=== PATIENT | male | born 1950 | race Caucasian/White ===

== ENCOUNTER 2016-05-10 18:01 | Inpatient (IN) | payer OTHER ==
[~2016-05-10] VITALS: Ht 177.8 cm; Wt 90.4 kg
[~2016-05-10 18:01] MED LIST: ALENDRONATE SOD70 M1 PO; AMLODIPINE BESYL5 MG PO; HYDROCODONE BIT1 T11 PO; PREDNISONE2.5 MG PO; RANITIDINE150 MG PO; RUFEN800 MG PO; TENORMIN25 MG PO
[2016-05-10 18:03] VITALS: BP 120/74
[2016-05-10 18:56] LABS: HEMATOCRIT 39.6 % (42.0-52.0); HEMOGLOBIN 12.8 g/dl (14.0-18.0); MEAN CELL VOLUME 94.3 fl (80.0-94.0); MEAN CORPUSCULAR HGB 30.5 pg (27.0-31.0); MEAN CORPUSCULAR HGB CONC 32.3 g/dl (33.0-37.0); MEAN PLATELET VOLUME 8.6 fl (9.6-12.3); PLATELET COUNT AUTOMATED 162 10*3/uL (130-400); RED CELL DISTRI WIDTH 15.2 % (0-14.5)
[2016-05-10 19:11] LABS: ALBUMIN 2.7 gm/dl (3.1-4.5); BILIRUBIN, TOTAL 0.7 mg/dl (0.2-1.0); POTASSIUM 3.9 mmol/L (3.5-5.1); TOTAL PROTEIN 6.7 gm/dL (6.4-8.2)
[2016-05-10 19:33] LABS: BILIRUBIN NEGATIVE (NEGATIVE); BLOOD 2+ (NEGATIVE); CLARITY CLOUDY (CLEAR); COLOR YELLOW (YELLOW); GLUCOSE NEGATIVE (NEGATIVE); KETONE NEGATIVE (NEGATIVE); LEUKO ESTERASE 3+ (NEGATIVE); NITRITE NEGATIVE (NEGATIVE); PH 5.5 (5.0-9.0); PROTEIN 1+ (NEGATIVE); SPECIFIC GRAVITY 1.025 (1.005-1.030); UROBILINOGEN 0.2 E.U./dl (0.2-1.0)
[2016-05-10 19:35] LABS: ATYPICAL LYMPHS 3 % (0-0); BASOPHIL # 0.1 10*3/uL (0-0.1); BASOPHILS 1 % (0-1); EOSINOPHIL # 0.1 10*3/uL (0-0.4); EOSINOPHILS 1 % (1-4); METAMYELOCYTES 1 % (0-0); MONOCYTE # 1.5 10*3/uL (0.1-1.0); NEUTROPHIL # 11.1 10*3/uL (2.3-7.9); NEUTROPHILS 79 % (47-73); TOTAL CELLS COUNTED 100 #CELLS
[2016-05-10 19:36] LABS: PLATELET SUFFICIENCY NORMAL (NORMAL)
[2016-05-10 19:51] LABS: BACTERIA 4+; EPITHELIAL CELLS 0-2; MUCOUS TRACE; RBC TNTC rbc/hpf (0-2); URINE REFLEX COMMENT YES (NO); WBC TNTC wbc/hpf (0-5)
[2016-05-10 20:17] VITALS: BP 100/69
[2016-05-10 21:33] VITALS: BP 108/68
[2016-05-10 22:00] VITALS: BP 107/68
[2016-05-11] VITALS: BP 124/72
[2016-05-11 00:46] LABS: CKMB 3.2 ng/ml (0.5-3.6)
[2016-05-11 06:18] LABS: MEAN CELL VOLUME 95.5 fl (80.0-94.0); MEAN CORPUSCULAR HGB 30.3 pg (27.0-31.0); MEAN CORPUSCULAR HGB CONC 31.8 g/dl (33.0-37.0); MEAN PLATELET VOLUME 8.9 fl (9.6-12.3); PLATELET COUNT AUTOMATED 130 10*3/uL (130-400); RED BLOOD COUNT 3.56 10*6/uL (4.50-5.90)
[2016-05-11 06:19] LABS: HEMOGLOBIN A1c 4.8 % (4.8-5.6)
[2016-05-11 06:26] LABS: HEMOGLOBIN 10.8 g/dl (14.0-18.0)
[2016-05-11 06:29] LABS: PROTHROMBIN TIME 11.1 SECONDS (9.0-12.4)
[2016-05-11 06:35] LABS: ALBUMIN 2.4 gm/dl (3.1-4.5); BILIRUBIN, TOTAL 0.5 mg/dl (0.2-1.0); POTASSIUM 4.8 mmol/L (3.5-5.1); TOTAL PROTEIN 6.6 gm/dL (6.4-8.2)
[2016-05-11 06:36] LABS: FREE T4 1.23 ng/dl (0.76-1.46); THYROID STIM HORMONE (HS) 0.518 uIU/ml (0.358-4.75)
[2016-05-11 07:36] LABS: LYMPHOCYTE # 0.2 10*3/uL (1.3-4.4); METAMYELOCYTES 1 % (0-0); MONOCYTE # 0.3 10*3/uL (0.1-1.0); MYELOCYTES 1 % (0-0); NEUTROPHIL # 8.4 10*3/uL (2.3-7.9); NEUTROPHILS 93 % (47-73); PLATELET SUFFICIENCY NORMAL (NORMAL); TOTAL CELLS COUNTED 100 #CELLS
[2016-05-11 08:00] VITALS: BP 124/74
[2016-05-11] MEDS ORDERED: TAMSULOSIN HCL0.4 MG PO (10:32)
[2016-05-11] MEDS ORDERED: NEURONTIN100 MG PO (10:33)
[2016-05-11] MEDS ORDERED: HYDROXYCHLOROQ200 M1 PO (10:34)
[2016-05-11] MEDS ORDERED: VITAMIN D50000 I3 PO (10:34)
[2016-05-11] MEDS ORDERED: TENORMIN25 MG PO (10:36)
[2016-05-11 12:00] VITALS: BP 139/76
[2016-05-11 12:26] LABS: CKMB 3.1 ng/ml (0.5-3.6)
[2016-05-11] MEDS ORDERED: LEVAQUIN750 M1 PO ×2 (15:16→15:23)
[2016-05-11] MEDS ORDERED: DOXYCYCLINE100 MG PO (15:23)
[2016-05-12 15:07] LABS: FOLIC ACID 18.93 ng/mL (>5.38)
[2016-05-13 15:08] LABS: ORGANISM ID Not indicated. (.); SPECIMEN SOURCE Urine (.); STREPTOCOCCUS PNEUMONIAE AG Negative (Negative)
[2016-05-13 16:10] LABS: LEGIONELLA URINARY ANTIGEN Negative (Negative)
== END 2016-05-11 16:15 | disposition home or self-care (01) | DRG 871 ==
LOC: ED 18:01 → EDHOLD 20:04 → 4E 20:04
PROVIDERS: Internal Medicine; Registered Nurse
DX: A41.9 Sepsis, unspecified organism (principal); J18.9 Pneumonia, unspecified organism; N17.0 Acute kidney failure with tubular necrosis; N30.00 Acute cystitis without hematuria; E44.0 Moderate protein-calorie malnutrition; R65.20 Severe sepsis without septic shock; L25.9 Unspecified contact dermatitis, unspecified cause; M06.9 Rheumatoid arthritis, unspecified; M81.0 Age-related osteoporosis without current pathological fracture; K21.9 Gastro-esophageal reflux disease without esophagitis; I10 Essential (primary) hypertension; Z88.8 Allergy status to other drugs, medicaments and biological substances; Z79.899 Other long term (current) drug therapy; Z68.28 Body mass index [BMI] 28.0-28.9, adult; Z91.040 Latex allergy status

== ENCOUNTER 2016-12-13 14:49 | Inpatient (IN) | payer OTHER ==
[~2016-12-13] VITALS: Ht 177.8 cm; Wt 81.0 kg
[2016-12-13] VITALS (34 sets, daily range): BP systolic 70–108; BP diastolic 45–64
--- NOTE | ~2016-12-13 | CON ---
[place], [place] REPORT OF CONSULTATION NAME: MERLY VALENZUELA UNIT #: [id number] ROOM: [facility] DOCTOR: BLAKE LYLESALFREDOVIDYA BIRTHDATE: [birth year] DOS: REQUESTING PHYSICIAN: Dr. Golden De La Torre. REASON FOR CONSULTATION: Hypertension. ASSESSMENT: 1. Current presentation with abdominal pain. 2. Evidence of severe hypertension requiring Levophed for support. 3. No significant response for 5-6 liters of IV challenge. 4. Chronic treatment with steroids for arthritis. 5. Previous history of tobacco abuse. 6. Severe anemia. 7. Acute renal failure. 8. Vitamin D deficiency. PLAN: 1. Cycle cardiac enzymes. 2. Check D-dimer. 3. Sed rate and CRP. 4. Consider challenge test for possible adrenal insufficiency. 5. Echocardiogram. 6. Consider renal consultation. 7. No further cardiac testing at this time. HISTORY OF PRESENT ILLNESS: The patient is a pleasant 66-year-old gentleman unknown to our practice, was referred by Dr. De La Torre for evaluation of severe hypertension. Apparently, the patient initial presentation with abdominal pain, but has no specific complaints, has been going on for the past 3 days prior to admission since Tuesday. The pain is pretty umbilical, generalized, nonradiating. No associated nausea, vomiting, or diaphoresis. No fever, no chills, no night sweats. No diarrhea, no bright blood per rectum or tarry stools. The patient is still able to keep food in. Never had any chest pain, chest pressure, heaviness or tightness. Never had any symptomatic palpitation or any associated dizziness, lightheadedness, or near syncope. The patient clearance prior to this presentation has been relatively healthy. PAST MEDICAL HISTORY: As detailed in my assessment. SOCIAL HISTORY: The patient claims he does no current tobacco, alcohol or illicit drug abuse. The patient admits to marijuana abuse. CURRENT MEDICATIONS: Currently is vitamin D, folic acid, vancomycin, prednisone, Levaquin, Neurontin, Lovenox, bisacodyl, DuoNeb, Protonix, and Levophed. ALLERGIES: The patient is allergic to NAPROSYN and MORPHINE. REVIEW OF SYSTEMS: Currently, the patient denies any headache, diplopia or blurry vision. No fever, no chills, no night sweats and no more abdominal pain, [place], [place] REPORT OF CONSULTATION NAME: MERLY VALENZUELA UNIT #: [id number] ROOM: [facility] DOCTOR: CHAIM LOZANO MD BIRTHDATE: [birth year] no bright red blood per rectum or tarry stools. The patient admits to joint pain and muscular pain (severe arthritic pain requiring steroids). No anxiety, no depression. No polyuria, no polydipsia, no skin rash. Review of all other systems has been negative. PHYSICAL EXAMINATION: GENERAL: The patient is alert and oriented x 3, quite pleasant. VITAL SIGNS: Blood pressure currently is 118/77, heart rate 92, respiratory rate of 18, temperature 98.1. HEENT: Extraocular muscles intact. Pupils equal, round, reactive to light. Conjunctivae significant pallor. Throat: No petechiae. NECK: Good upstroke. Unable to appreciate any bruit, no lymphadenopathy, no thyromegaly, no evidence of JVD. HEART: S1, S2 with holosystolic murmur in the left upper sternal border. No rub, no sternal heave. Distant heart sounds. CHEST AND BACK: No deformities. LUNGS: Decreased air movement. No laquita wheezing or rales. ABDOMEN: Soft, distended, generalized tenderness. Unable to appreciate any masses or bruits. No rebound. EXTREMITIES: Lower extremities, no edema. Faint distal pulses. NEUROLOGIC: Grossly nonfocal. SKIN: No significant rash. LABORATORY DATA: White count 4.7, hemoglobin 8.4, platelet counts 119,000. UA has been negative except for ketones. Creatinine 2.2, BUN 33, GFR 30%. Total bilirubin 2.6, ALT 10, alkaline phosphatase 192, total protein is 6, albumin is 1.6. HDL is 10, total cholesterol 67, triglycerides 76, LDL 42. Free T4 1.3. CHAIM LOZANO MD CM:CONSTR:REPORT OF CONSULTATION 33 12/14/162048 interface
--- NOTE | ~2016-12-13 | PR ---
[place], [place] PROGRESS NOTE NAME: MERLY VALENZUELA UNIT #: [id number] ROOM: [facility] DOCTOR: CHAIM LOZANO MD BIRTHDATE: [birth year] DOS: 12/15/2016 SUBJECTIVE: The patient is lying down completely flat on bed, continued to be tachypneic and short of breath. No specific cardiac complaint. No chest pain, no chest pressure. No symptomatic palpitation. No fever, no chills. The patient reported some improvement from last night. OBJECTIVE: VITAL SIGNS: Blood pressure 97/55, heart rate 82, respiratory rate of 20, temperature 98.1. NECK: Neck with no evidence of JVD. HEART: Heart exam, S1, S2 with holosystolic murmur at the left upper sternal border. LUNGS: Significantly decreased air movement but no laquita wheezing or rales. ABDOMEN: Distended, soft and tender. Present bowel sounds. LOWER EXTREMITIES: There is no significant edema. LAB DATA: White count 4.3, platelet count 127, hemoglobin 8.7, sed rate 130. Potassium 4.6, creatinine 1.8, BUN 28, GFR 37. Total bilirubin 2, ALT 9, AST 16. C-reactive protein is 22. Troponin less than 0.015. ASSESSMENT AND PLAN: Presentation with abdominal pain and shortness of breath in a patient who has quite extensive metabolic derangement including severe anemia, chronic renal failure, significantly elevated liver function tests that is showing some improvement today, with elevated CRP and sed rate. The patient's white count is normal with no evidence of left shift. The patient continued to be on Levophed drip to maintain blood pressure. I will proceed with an urgent echocardiogram to evaluate LV function. Highly recommend pulmonary consultation to consider pleurocentesis, both diagnostic and therapeutic. GI is already on the case. Again, consider test or a.m. cortisol in view of the patient's chronic intake of prednisone. No further cardiac testing at this time. CHAIM LOZANO MD CM:PNTRANS [id number] CHAIM LOZANO MD 12/16/16 0215 interface
--- NOTE | ~2016-12-13 | CON ---
[place], [place] REPORT OF CONSULTATION NAME: MERLY VALENZUELA UNIT #: [id number] ROOM: [facility] DOCTOR: CAMMIE REAVES MD,NAM BIRTHDATE: [birth year] DOS: 12/15/2016 The patient asked for consultation, but not seen prior to transfer to another facility. NAM BONDS MD CM:CONSTR:REPORT OF CONSULTATION 1152 12/16/16 1201 interface
[~2016-12-13 14:49] MED LIST changes: +DOXYCYCLINE100 MG PO; +HYDROXYCHLOROQ200 M1 PO; +LEVAQUIN750 M1 PO; +NEURONTIN100 MG PO; -PREDNISONE2.5 MG PO; +PREDNISONE5 MG PO; +TAMSULOSIN HCL0.4 MG PO; +VITAMIN D50000 I3 PO
[2016-12-13 16:24] LABS: HEMATOCRIT 27.2 % (42.0-52.0); HEMOGLOBIN 8.7 g/dl (14.0-18.0); MEAN CELL VOLUME 88.3 fl (80.0-94.0); MEAN CORPUSCULAR HGB 28.2 pg (27.0-31.0); MEAN PLATELET VOLUME 9.3 fl (9.6-12.3); PLATELET COUNT AUTOMATED 142 10*3/uL (130-400); RED BLOOD COUNT 3.08 10*6/uL (4.50-5.90); RED CELL DISTRI WIDTH 14.7 % (0-14.5); WHITE BLOOD COUNT 5.6 10*3/uL (4.8-10.8)
[2016-12-13 16:41] LABS: ALBUMIN 2.1 gm/dl (3.1-4.5); POTASSIUM 4.3 mmol/L (3.5-5.1); TOTAL PROTEIN 7.1 gm/dL (6.4-8.2)
[2016-12-13 16:57] LABS: BASOPHIL # 0.1 10*3/uL (0-0.1); BASOPHILS 1 % (0-1); EOSINOPHIL # 0.1 10*3/uL (0-0.4); EOSINOPHILS 1 % (1-4); LYMPHOCYTE # 0.7 10*3/uL (1.3-4.4); MONOCYTE # 1.1 10*3/uL (0.1-1.0); NEUTROPHIL # 3.7 10*3/uL (2.3-7.9); NEUTROPHILS 66 % (47-73); POLYCHROMASIA SLIGHT; TOTAL CELLS COUNTED 100 #CELLS
[2016-12-13 16:58] LABS: PLATELET SUFFICIENCY NORMAL (NORMAL)
[2016-12-13] MEDS ORDERED: NEURONTIN300 MG PO (22:10)
[2016-12-14] VITALS (85 sets, daily range): BP systolic 62–134; BP diastolic 33–85
[2016-12-14 06:01] LABS: HEMATOCRIT 26.9 % (42.0-52.0); HEMOGLOBIN 8.4 g/dl (14.0-18.0); MEAN CELL VOLUME 90.6 fl (80.0-94.0); MEAN CORPUSCULAR HGB 28.3 pg (27.0-31.0); MEAN CORPUSCULAR HGB CONC 31.2 g/dl (33.0-37.0); MEAN PLATELET VOLUME 9.3 fl (9.6-12.3); PLATELET COUNT AUTOMATED 119 10*3/uL (130-400); RED BLOOD COUNT 2.97 10*6/uL (4.50-5.90); RED CELL DISTRI WIDTH 15.3 % (0-14.5); WHITE BLOOD COUNT 4.7 10*3/uL (4.8-10.8)
[2016-12-14 06:19] LABS: ALBUMIN 1.6 gm/dl (3.1-4.5); BILIRUBIN, TOTAL 2.6 mg/dl (0.2-1.0); FREE T4 1.3 ng/dl (0.76-1.46); MAGNESIUM 1.6 mg/dL (1.5-2.1); PHOSPHOROUS 3.3 mg/dL (2.5-4.9); POTASSIUM 4.3 mmol/L (3.5-5.1)
[2016-12-14 06:23] LABS: EOSINOPHILS 1 % (1-4); LYMPHOCYTE # 0.9 10*3/uL (1.3-4.4); MONOCYTE # 0.6 10*3/uL (0.1-1.0); NEUTROPHIL # 3.1 10*3/uL (2.3-7.9); NEUTROPHILS 66 % (47-73); TOTAL CELLS COUNTED 100 #CELLS
[2016-12-14 06:24] LABS: PLATELET SUFFICIENCY LOW (NORMAL); THYROID STIM HORMONE (HS) 0.329 uIU/ml (0.358-4.75)
[2016-12-14 06:55] LABS: BILIRUBIN 2+ (NEGATIVE); BLOOD NEGATIVE (NEGATIVE); CLARITY CLOUDY (CLEAR); COLOR YELLOW (YELLOW); GLUCOSE NEGATIVE (NEGATIVE); KETONE NEGATIVE (NEGATIVE); LEUKO ESTERASE 1+ (NEGATIVE); NITRITE NEGATIVE (NEGATIVE); PH 5.5 (5.0-9.0); PROTEIN TRACE (NEGATIVE); SPECIFIC GRAVITY 1.015 (1.005-1.030); UROBILINOGEN >= 8.0 E.U./dl (0.2-1.0)
[2016-12-14 07:03] LABS: BACTERIA 4+; URINE REFLEX COMMENT YES (NO); WBC 31-40 wbc/hpf (0-5)
[2016-12-14 07:04] LABS: URINE AMPHETAMINES < 1000 (1000ng/ml); URINE BARBITURATES < 200 (200ng/ml); URINE COCAINE < 300 (300ng/ml)
[2016-12-14 08:29] LABS: VITAMIN D, 25-HYDROXY 20.1 ng/mL (30-100)
[2016-12-14 08:30] LABS: FOLIC ACID 4.22 ng/mL (>5.38)
[2016-12-14 09:57] LABS: HEMOGLOBIN A1c < 3.5 % (4.8-5.6)
[2016-12-14 18:45] LABS: ABG CO2 CONTENT 18.3 mmol/L (23-27); ABG HCO3 17.2 mmol/l (22-26); ABG TEMPERATURE 96.5 F (98.0-99.0); ARTERIAL BLOOD GAS PH 7.323 (7.35-7.45)
[2016-12-14 18:46] LABS: ABG BASE EXCESS -7.9 mmol/L (-2.0-2.0)
[2016-12-15] VITALS (65 sets, daily range): BP systolic 75–112; BP diastolic 35–71
[2016-12-15 05:56] LABS: HEMATOCRIT 28.2 % (42.0-52.0); HEMOGLOBIN 8.7 g/dl (14.0-18.0); MEAN CELL VOLUME 89.8 fl (80.0-94.0); MEAN CORPUSCULAR HGB 27.7 pg (27.0-31.0); MEAN CORPUSCULAR HGB CONC 30.9 g/dl (33.0-37.0); MEAN PLATELET VOLUME 9.3 fl (9.6-12.3); PLATELET COUNT AUTOMATED 127 10*3/uL (130-400); RED BLOOD COUNT 3.14 10*6/uL (4.50-5.90); RED CELL DISTRI WIDTH 15.2 % (0-14.5); WHITE BLOOD COUNT 4.3 10*3/uL (4.8-10.8)
[2016-12-15 06:09] LABS: ALBUMIN 1.5 gm/dl (3.1-4.5); POTASSIUM 4.6 mmol/L (3.5-5.1); TOTAL PROTEIN 5.9 gm/dL (6.4-8.2)
[2016-12-15 07:08] LABS: EOSINOPHILS 1 % (1-4); HYPOCHROMIA SLIGHT; LYMPHOCYTE # 0.2 10*3/uL (1.3-4.4); MONOCYTE # 0.4 10*3/uL (0.1-1.0); NEUTROPHIL # 3.7 10*3/uL (2.3-7.9); NEUTROPHILS 85 % (47-73); PLATELET SUFFICIENCY LOW (NORMAL); ROULEAUX MODERATE; TOTAL CELLS COUNTED 100 #CELLS
[2016-12-15 11:23] LABS: ABG CO2 CONTENT 19.1 mmol/L (23-27); ABG HCO3 17.6 mmol/l (22-26); ABG TEMPERATURE 98.1 F (98.0-99.0); ARTERIAL BLOOD GAS PO2 84.4 mmHg (80-90)
[2016-12-15 11:27] LABS: ABG BASE EXCESS -9.7 mmol/L (-2.0-2.0); ARTERIAL BLOOD GAS PH 7.194 (7.35-7.45)
[2016-12-15 14:53] LABS: ABG CO2 CONTENT 17.5 mmol/L (23-27); ABG HCO3 16.3 mmol/l (22-26); ARTERIAL BLOOD GAS PH 7.254 (7.35-7.45)
[2016-12-15 14:54] LABS: ABG BASE EXCESS -9.8 mmol/L (-2.0-2.0)
== END 2016-12-15 16:57 | disposition short-term general hospital (02) | DRG 871 ==
LOC: ED 14:49 → ICCU 17:33 → EDHOLD 17:33 → 4E 18:05 → ICCU 18:40
PROVIDERS: Emergency Medicine; Internal Medicine; Internal Medicine Critical Care Medicine; Internal Medicine Hospice and Palliative Medicine
PROC: B244ZZZ Ultrasonography of Right Heart (ICD-10-PCS; principal; 2016-12-14)
PROC: 02H633Z Insertion of Infusion Device into Right Atrium, Percutaneous Approach (ICD-10-PCS; principal; 2016-12-14)
PROC: 0BH17EZ Insertion of Endotracheal Airway into Trachea, Via Natural or Artificial Opening (ICD-10-PCS; 2016-12-15)
PROC: 5A1935Z Respiratory Ventilation, Less than 24 Consecutive Hours (ICD-10-PCS; 2016-12-15)
DX: A41.9 Sepsis, unspecified organism (principal); N17.0 Acute kidney failure with tubular necrosis; R65.21 Severe sepsis with septic shock; E43 Unspecified severe protein-calorie malnutrition; E87.1 Hypo-osmolality and hyponatremia; R17 Unspecified jaundice; I50.32 Chronic diastolic (congestive) heart failure; I13.0 Hypertensive heart and chronic kidney disease with heart failure and stage 1 through stage 4 chronic kidney disease, or unspecified chronic kidney disease; G89.29 Other chronic pain; K21.9 Gastro-esophageal reflux disease without esophagitis; M81.0 Age-related osteoporosis without current pathological fracture; M06.9 Rheumatoid arthritis, unspecified; I95.0 Idiopathic hypotension; D53.9 Nutritional anemia, unspecified; K82.8 Other specified diseases of gallbladder; K80.20 Calculus of gallbladder without cholecystitis without obstruction; K59.00 Constipation, unspecified; D72.810 Lymphocytopenia; R73.9 Hyperglycemia, unspecified; E80.6 Other disorders of bilirubin metabolism; E55.9 Vitamin D deficiency, unspecified; F12.10 Cannabis abuse, uncomplicated; N18.3 Chronic kidney disease, stage 3 (moderate); Z68.25 Body mass index [BMI] 25.0-25.9, adult; Z87.891 Personal history of nicotine dependence; Z79.51 Long term (current) use of inhaled steroids; Z79.899 Other long term (current) drug therapy; Z88.5 Allergy status to narcotic agent; Z88.8 Allergy status to other drugs, medicaments and biological substances

== ENCOUNTER 2017-01-26 12:01 | Inpatient (IN) | payer OTHER ==
[~2017-01-26] VITALS: Ht 154.9 cm; Wt 73.2 kg
--- NOTE | ~2017-01-26 | EKG ---
[place], [place] ELECTROCARDIOGRAM REPORT NAME: MERLY VALENZUELA UNIT #: [id number] ROOM: 507 DOCTOR: JAMIE LYLES,KELSIE BIRTHDATE: [birth year] DOS: 01/28/2017 TIME: 11:06 a.m. CONCLUSION: 1. Sinus rhythm. 2. Premature atrial contractions. 3. First degree AV block. 4. Low voltage complexes. KELSIE AYALA MD CM:EKGRPT:ELECTROCARDIOGRAM REPORT [id number] KELSIE AYALA MD
--- NOTE | ~2017-01-26 | EKG ---
[place], [place] ELECTROCARDIOGRAM REPORT NAME: MERLY VALENZUELA UNIT #: [id number] ROOM: 507 DOCTOR: JAMIE LYLES,KELSIE BIRTHDATE: [birth year] DOS: 01/28/2017 TIME: 1641 hours. IMPRESSION: 1. Sinus rhythm. 2. First degree AV block. 3. Possible ST elevation and lateral leads, consider acute infarction. 4. Possible ST elevation, consider inferior acute myocardial infarction. KELSIE AYALA MD CM:EKGRPT:ELECTROCARDIOGRAM REPORT [id number] KELSIE AYALA MD
[2017-01-26 12:01] VITALS: BP 105/62
[~2017-01-26 12:01] MED LIST changes: +NEURONTIN300 MG PO
[2017-01-26 12:36] LABS: HEMATOCRIT 30.3 % (42.0-52.0); HEMOGLOBIN 9.2 g/dl (14.0-18.0); MEAN CELL VOLUME 96.5 fl (80.0-94.0); MEAN CORPUSCULAR HGB 29.3 pg (27.0-31.0); MEAN CORPUSCULAR HGB CONC 30.4 g/dl (33.0-37.0); MEAN PLATELET VOLUME 8.5 fl (9.6-12.3); PLATELET COUNT AUTOMATED 179 10*3/uL (130-400); RED BLOOD COUNT 3.14 10*6/uL (4.50-5.90); RED CELL DISTRI WIDTH 18.8 % (0-14.5); WHITE BLOOD COUNT 33.5 10*3/uL (4.8-10.8)
[2017-01-26 12:46] LABS: ACT PARTIAL THROMBO TIME 37.1 SECONDS (20.8-31.5)
[2017-01-26 12:53] LABS: TOTAL CELLS COUNTED 100 #CELLS
[2017-01-26 12:54] LABS: PLATELET SUFFICIENCY NORMAL (NORMAL); POLYCHROMASIA SLIGHT; TOXIC GRANULATION SLIGHT
[2017-01-26 12:59] LABS: ALBUMIN 1.8 gm/dl (3.1-4.5); ALKALINE PHOSPHATASE 191 U/L (45-117); BUN 41 mg/dl (7-24); CHLORIDE 106 mmol/L (98-107); CKMB 1.1 ng/ml (0.5-3.6); CPK 14 U/L (39-308); CREATININE 1.39 mg/dL (0.70-1.30); LIPASE 768 U/L (73-393); MAGNESIUM 1.5 mg/dL (1.5-2.1); POTASSIUM 5.1 mmol/L (3.5-5.1); SGOT/AST 25 IU/L (3-35); SGPT/ALT 33 U/L (12-78); SODIUM 138 mmol/L (136-145); TOTAL PROTEIN 6.2 gm/dL (6.4-8.2); TROPONIN I 0.027 ng/ml (<0.045)
[2017-01-26 14:22] VITALS: BP 106/70
[2017-01-26 14:30] LABS: BILIRUBIN NEGATIVE (NEGATIVE); BLOOD 2+ (NEGATIVE); CLARITY CLOUDY (CLEAR); COLOR YELLOW (YELLOW); GLUCOSE NEGATIVE (NEGATIVE); KETONE NEGATIVE (NEGATIVE); LEUKO ESTERASE 3+ (NEGATIVE); NITRITE POSITIVE (NEGATIVE); PH 5.5 (5.0-9.0); UROBILINOGEN 0.2 E.U./dl (0.2-1.0)
[2017-01-26 14:39] LABS: WBC TNTC wbc/hpf (0-5)
--- NOTE | 2017-01-26 14:50 | NUR ---
WOUNDS; BILATERAL RED/ECCHYMOTIC TYPE AREAS TO FOREARMS BILATERAL HEELS RED/SCALY SKIN LOWER LEGS BILATERALLY HAVE CHRONIC SKIN CHANGES SACRAL AREA IS REDDENED WITH SMALL OPENING
[2017-01-26 16:00] VITALS: BP 110/68
--- NOTE | 2017-01-26 16:00 | NUR ---
A 66, admitted to , under the services of NEENA Welch DO with a diagnosis of UTI, SEPSIS, PNEUMONIA. Chief complaint is SEPSIS. Patient arrived via bed from ER. Monitor applied. Initial assessment completed. Vital signs taken and recorded. NEENA WELCH DO notified of admission to the unit. Orders received. See assessment for past medical history, medications and allergies. Patient and/or family oriented to unit. [facility] visitation policy reviewed. Clothing/patient valuable form completed. ERIC AYALA
[2017-01-26 18:00] VITALS: BP 98/65
[2017-01-26] MEDS ORDERED: OMEPRAZOLE D/R20 MG PO (19:03)
[2017-01-26] MEDS ORDERED: NATURE'S BLEND F1 MG PO (19:04)
[2017-01-26] MEDS ORDERED: ASPIRIN CHEWABL81 MG PO (19:04)
[2017-01-26] MEDS ORDERED: HEPARIN SO5000 UNIT4 SC (19:06)
[2017-01-26] MEDS ORDERED: TYLENOL325 M1 PO (19:07)
[2017-01-26] MEDS ORDERED: LIPITOR40 MG PO (19:08)
[2017-01-26] MEDS ORDERED: FERROUS GLUCON324 MG PO (19:08)
[2017-01-26] MEDS ORDERED: MIDODRINE HCL10 MG PO (19:09)
[2017-01-26] MEDS ORDERED: MULTIVITAMINS1 EAC5 PO (19:10)
[2017-01-26] MEDS ORDERED: MIRALAX POWDER17 G1 PO (19:11)
[2017-01-26] MEDS ORDERED: ZINC SULFATE 1566 MG PO (19:11)
[2017-01-26] MEDS ORDERED: EUCERIN CREME120 GM T (19:12)
[2017-01-26] MEDS ORDERED: PROAIR HFA8.5 GM INH (19:13)
[2017-01-26 20:00] VITALS: BP 107/62
--- NOTE | 2017-01-26 20:00 | NUR ---
RESTING IN BED. 02 INTACT AT 2LPM VIA NASAL CANNULA. LUNGS DIMINISHED BILATERALLY WITH NO COUGH NOTED AT THIS TIME. PULSE OX 95% ON 2 LITERS. HEP LOCK INTACT TO RIGHT ANTECUBITAL; SITE ASYMPTOMATIC. PT. DENIES PAIN AT THIS TIME. CALL LIGHT WITHIN REACH.
--- NOTE | 2017-01-26 22:09 | NUR ---
MEDICATED WITH NORCO FOR C/O BACK PAIN RATED AN 8/10 & ALSO WITH RESTORIL TO HELP PT. SLEEP.
[2017-01-27] VITALS: BP 99/60
--- NOTE | 2017-01-27 | NUR ---
RESTING IN BED WITH EYES CLOSED; MEDICATIONS GIVEN EARLIER APPARENTLY EFFECTIVE.
[2017-01-27 06:41] LABS: HEMATOCRIT 28.9 % (42.0-52.0); HEMOGLOBIN 8.4 g/dl (14.0-18.0); MEAN CELL VOLUME 98.6 fl (80.0-94.0); MEAN CORPUSCULAR HGB 28.7 pg (27.0-31.0); MEAN CORPUSCULAR HGB CONC 29.1 g/dl (33.0-37.0); MEAN PLATELET VOLUME 8.3 fl (9.6-12.3); PLATELET COUNT AUTOMATED 131 10*3/uL (130-400); RED BLOOD COUNT 2.93 10*6/uL (4.50-5.90); RED CELL DISTRI WIDTH 18.7 % (0-14.5); WHITE BLOOD COUNT 23.3 10*3/uL (4.8-10.8)
[2017-01-27 07:10] LABS: PLATELET SUFFICIENCY NORMAL (NORMAL); TOTAL CELLS COUNTED 100 #CELLS
[2017-01-27 07:14] LABS: ACT PARTIAL THROMBO TIME 31.6 SECONDS (20.8-31.5)
[2017-01-27 07:25] LABS: ALBUMIN 1.6 gm/dl (3.1-4.5); ALKALINE PHOSPHATASE 167 U/L (45-117); BUN 37 mg/dl (7-24); CHLORIDE 108 mmol/L (98-107); CHOLESTEROL 69 mg/dL (<200); HDL CHOLESTEROL 26 mg/dl (40-60); LDL CHOLESTEROL 25 mg/dL (9-159); MAGNESIUM 1.7 mg/dL (1.5-2.1); PHOSPHOROUS 3.1 mg/dL (2.5-4.9); SGOT/AST 14 IU/L (3-35); SGPT/ALT 24 U/L (12-78); SODIUM 142 mmol/L (136-145); TOTAL PROTEIN 5.9 gm/dL (6.4-8.2); TRIGLYCERIDES 90 mg/dl (<150); VLDL CHOLESTEROL 18 mg/dL (6-40)
[2017-01-27 08:00] VITALS: BP 97/67
--- NOTE | 2017-01-27 09:00 | NUR ---
case management visits with patient, patient states he was at [facility] for skilled stay and would like to return when able, product planner will contact [facility] and see if patient is able to return when medically stable
[2017-01-27 12:00] VITALS: BP 111/63
--- NOTE | 2017-01-27 13:47 | NUR ---
Patient is currently snf at [facility] and will require a precert to return. will need PT/OT orders/evals for precert.
[2017-01-27 16:00] VITALS: BP 111/69
[2017-01-27 20:00] VITALS: BP 105/62; BP 160/82
--- NOTE | 2017-01-27 20:40 | NUR ---
RESTING IN BED; 02 INTACT AT 3LPM VIA NASAL CANNULA. SKIN WARM & DRY. HEP LOCK INTACT TO RIGHT HAND. LUNGS DIMINISHED WITH NO COUGH NOTED. PIGTAIL CATHETER DRAINAGE GREENISH DRAINAGE. LAY PATENT. PT. VOICES NO C/O. CALL LIGHT WITHIN REACH.
--- NOTE | 2017-01-27 21:40 | NUR ---
MEDICATED WITH NORCO FOR C/O BACK PAIN & RESTORIL FOR SLEEP.
[2017-01-28] VITALS: BP 113/63
--- NOTE | 2017-01-28 01:00 | NUR ---
IV LEAKING AT SITE; NEW IV STARTED PER PROTOCOL.
--- NOTE | 2017-01-28 03:00 | NUR ---
RESTING IN BED WITH EYES CLOSED; PAIN MEDICATION & RESTORIL GIVEN EARLIER APPARENTLY EFFECTIVE.
--- NOTE | 2017-01-28 06:00 | NUR ---
RESTING IN BED WITH EYES CLOSED. O2 REMAINS INTACT. NO DISTRESS NOTED. CALL LIGHT WITHIN REACH.
--- NOTE | 2017-01-28 07:30 | NUR ---
PT AWAKE, ALERT, ORIENTED. RESPIRATIONS EASY, REGULAR, NON-LABORED. CALL LIGHT IN REACH.
[2017-01-28 08:00] VITALS: BP 98/66
[2017-01-28 08:06] LABS: HEMATOCRIT 30.7 % (42.0-52.0); HEMOGLOBIN 8.9 g/dl (14.0-18.0); MEAN CELL VOLUME 99.7 fl (80.0-94.0); MEAN CORPUSCULAR HGB 28.9 pg (27.0-31.0); MEAN PLATELET VOLUME 8.4 fl (9.6-12.3); PLATELET COUNT AUTOMATED 169 10*3/uL (130-400); RED BLOOD COUNT 3.08 10*6/uL (4.50-5.90); RED CELL DISTRI WIDTH 19.2 % (0-14.5); WHITE BLOOD COUNT 16.8 10*3/uL (4.8-10.8)
[2017-01-28 08:18] LABS: BUN 32 mg/dl (7-24); CHLORIDE 110 mmol/L (98-107); CREATININE 1.35 mg/dL (0.70-1.30); POTASSIUM 5.1 mmol/L (3.5-5.1); SODIUM 142 mmol/L (136-145)
[2017-01-28 08:35] LABS: PLATELET SUFFICIENCY NORMAL (NORMAL); POLYCHROMASIA SLIGHT; TOTAL CELLS COUNTED 100 #CELLS
--- NOTE | 2017-01-28 09:00 | NUR ---
case management visits with patient, patient will be going back to [facility] when medically stable for discharge, he will need an insurance precert prior to returning
--- NOTE | 2017-01-28 11:04 | NUR ---
NOTIFIED DR MORENO OF CONSULT. WILL SEE PATIENT TODAY.
--- NOTE | 2017-01-28 11:53 | NUR ---
PHYSICAL THERAPY PAtient evaluated on 5, full evaluation to follow. Continue with PT as per plan of care with fall, ma (A) x 2, alarm, drain to right abdomin and signfiicant acute debility precautions. Will require LTAC for signfiicant impaired mobility, if insurance and patient refuse- will require SNF. PAtient is high complexity via chart review, tests and evaluation: [id number]. Thank you for this referral. tenisha holcomb,PT
[2017-01-28 12:00] VITALS: BP 110/52
--- NOTE | 2017-01-28 12:09 | NUR ---
Occupational Therapy evalaution completed this date on 5 with full eval to follow. Precautions include severe debility, high complexity level 36230, abd drain, IV UE, O2, severe pain w/ movement, dependent ADLS, dependent mobility, poor arousal state. Recommend LTACH or if insurance does not permit then SNF for all rehab and SN. Thank you for this referral. Julia Tolbert OTR/L
[2017-01-28 16:00] VITALS: BP 93/67
--- NOTE | 2017-01-28 16:10 | NUR ---
A 66, admitted to , under the services of NEENA Welch DO with a diagnosis of CELLULITIS OF LEFT LEG, ELEVATED TROPONIN, ACUTE ON CHRONIC RENAL FAILURE. Chief complaint is WEAKNESS, NAUSEA, PRODUCTIVE COUGH. Patient arrived via bed from ER. Monitor applied. Initial assessment completed. Vital signs taken and recorded. NEENA WELCH DO notified of admission to the unit. Orders received. See assessment for past medical history, medications and allergies. Patient and/or family oriented to unit. [facility] Clothing/patient valuable form completed. REINALDO GARCIA
--- NOTE | 2017-01-28 18:00 | NUR ---
50cc DRAINAGE NOTED FROM RIGHT POSTERIOR GB DRAINAGE
[2017-01-28 20:00] VITALS: BP 121/80
--- NOTE | 2017-01-28 20:56 | NUR ---
CALLING OUT IN PAIN. MEDICATED WITH NORCO PER PRN ORDER. ALSO REPOSITIONED FOR COMFORT. WILL MONITOR FOR EFFECTIVENESS
--- NOTE | 2017-01-28 22:00 | NUR ---
EARLIER NORCO EFFECTIVE. RESTING MORE COMFORTABLY. RESPIRATIONS EASY. LUNGS DIMINISHED WITH RHONCHI. PULSE OX 97% 2L. DRAINAGE BAG NOTED PATENT TO RIGHT POSTERIOR BACK. BLE DISCOLORED, PPP. CALL LIGHT WITHIN REACH. NO VOICED COMPLAINTS. BED ALARM MAINTAINED FOR SAFETY
[2017-01-29] VITALS: BP 101/75
--- NOTE | 2017-01-29 | NUR ---
RESTING WITH EYES CLOSED. RESPIRATIONS EASY. VSS. CALL LIGHT WITHIN REACH
[2017-01-29] MEDS ORDERED: TYLENOL EXTRA500 M2 PO (03:43)
--- NOTE | 2017-01-29 03:51 | NUR ---
REQUESTED AND RECEIVED NORCO PER PRN ORDER FOR COMPLAINTS OF GENERALIZED PAIN RATING A 10. WILL MONITOR FOR EFFECTIVENESS
--- NOTE | 2017-01-29 05:00 | NUR ---
EARLIER MEDS APPEAR EFFECTIVE, SLEEPING. BED ALARM MAINTAINED
--- NOTE | 2017-01-29 06:00 | NUR ---
150 CC DRAINAGE NOTED FROM RIGHT POSTERIOR GB DRAIN
[2017-01-29 06:15] LABS: HEMATOCRIT 29.1 % (42.0-52.0); HEMOGLOBIN 8.6 g/dl (14.0-18.0); MEAN CELL VOLUME 98.6 fl (80.0-94.0); MEAN CORPUSCULAR HGB 29.2 pg (27.0-31.0); MEAN CORPUSCULAR HGB CONC 29.6 g/dl (33.0-37.0); MEAN PLATELET VOLUME 8.7 fl (9.6-12.3); NUCLEATED RED BLOOD CELL 0.2 % (0.0-0.0); PLATELET COUNT AUTOMATED 199 10*3/uL (130-400); RED BLOOD COUNT 2.95 10*6/uL (4.50-5.90); RED CELL DISTRI WIDTH 19.5 % (0-14.5); WHITE BLOOD COUNT 12.2 10*3/uL (4.8-10.8)
--- NOTE | 2017-01-29 07:30 | NUR ---
Patient resting quietly with no c/o discomfort. Respirations easy and regular. Vital signs stable. No overt distress. ERIC AYALA
[2017-01-29 07:37] LABS: PLATELET SUFFICIENCY NORMAL (NORMAL); TOTAL CELLS COUNTED 100 #CELLS
[2017-01-29 07:38] LABS: POLYCHROMASIA SLIGHT
[2017-01-29 08:00] VITALS: BP 105/67
--- NOTE | 2017-01-29 09:00 | NUR ---
DR FRANK IN TO SEE PATIENT
--- NOTE | 2017-01-29 09:18 | NUR ---
PT GIVEN PRN PO NORCO FOR COMPLAINTS OF PAIN TO BACK. WILL MONITOR.
--- NOTE | 2017-01-29 10:00 | NUR ---
PT RESTING IN BED, MEDS SEEM TO BE EFFECTIVE.
[2017-01-29 12:00] VITALS: BP 104/62
--- NOTE | 2017-01-29 12:43 | NUR ---
Patient resting quietly with no c/o discomfort. Respirations easy and regular. Vital signs stable. No overt distress. ERIC AYALA
--- NOTE | 2017-01-29 13:37 | NUR ---
DR MORENO IN TO SEE PATIENT.
[2017-01-29 16:00] VITALS: BP 113/75
--- NOTE | 2017-01-29 18:08 | NUR ---
PATIENT MEDICATED WITH NORCO DUE TO C/O URQ PAIN, WILL MONITOR
--- NOTE | 2017-01-29 18:45 | NUR ---
NORCO NOT EFFECTIVE, PHYSICIAN NOTIFIED SEE NEW ORDERS. ALLERGIES TO MORPHINE VARIFIED WITH PHARMACIST.
[2017-01-29 20:00] VITALS: BP 118/58
--- NOTE | 2017-01-29 21:56 | NUR ---
PATIENT MEDICATED WITH NORCO WITH C/O RUQ PAIN.WILL MONITOR
--- NOTE | 2017-01-29 22:30 | NUR ---
NORCO EFFECTIVE ALONG WITH POSITION CHANGED TO BACK.
[2017-01-30] VITALS: BP 118/58
[2017-01-30 06:09] LABS: HEMATOCRIT 29.1 % (42.0-52.0); HEMOGLOBIN 8.7 g/dl (14.0-18.0); MEAN CELL VOLUME 99.7 fl (80.0-94.0); MEAN CORPUSCULAR HGB 29.8 pg (27.0-31.0); MEAN CORPUSCULAR HGB CONC 29.9 g/dl (33.0-37.0); MEAN PLATELET VOLUME 8.8 fl (9.6-12.3); PLATELET COUNT AUTOMATED 173 10*3/uL (130-400); RED BLOOD COUNT 2.92 10*6/uL (4.50-5.90); RED CELL DISTRI WIDTH 19.9 % (0-14.5); WHITE BLOOD COUNT 13.1 10*3/uL (4.8-10.8)
[2017-01-30 06:11] LABS: CREATININE 1.94 mg/dL (0.70-1.30); POTASSIUM 5.5 mmol/L (3.5-5.1)
--- NOTE | 2017-01-30 06:45 | NUR ---
MEDICATED WITH NORCO FOR CHRONIC ARTHRITIC PAIN, WILL MONITOR.
[2017-01-30 06:53] LABS: PLATELET SUFFICIENCY NORMAL (NORMAL); TOTAL CELLS COUNTED 100 #CELLS
[2017-01-30 06:54] LABS: POLYCHROMASIA SLIGHT
[2017-01-30 08:00] VITALS: BP 95/72
[2017-01-30 09:21] VITALS: BP 104/68
--- NOTE | 2017-01-30 09:28 | NUR ---
PT YELLING OUT IN PAIN, STATING HIS TAILBONE HURTS, ATTEMPTED TO REPOSITON PT FOR COMFORT, PT REFUSED TO BE TURNED. BP RECHECKED MANUALLY 104/64. PROVIDED PT WITH DILAUDID PER PRN ORDER. WILL MONITOR FOR EFFECTIVENESS.
--- NOTE | 2017-01-30 11:01 | NUR ---
PT RESTING COMFORTABLY, DILAUDID APPEARS EFFECTIVE.
[2017-01-30 12:00] VITALS: BP 105/80
--- NOTE | 2017-01-30 13:57 | NUR ---
SPOKE WITH PT'S , SHE IS UPDATED ON THE PLAN TO TRANSFER THE PT TO [facility]. SHE WILL BE IN TO GIVE CONSENT FOR THE TRANSFER.
--- NOTE | 2017-01-30 15:10 | NUR ---
DR GOMEZ HERE AT THIS TIME TO SPEAK WITH PT'S REGARDING TRANSFER TO [facility].
[2017-01-30 16:00] VITALS: BP 98/61
--- NOTE | 2017-01-30 16:06 | NUR ---
NURSE TO NURSE REPORT GIVEN TO REINALDO AT [facility].
--- NOTE | 2017-01-30 16:15 | NUR ---
PT DISCHARGED TO [facility], [facility]IA [facility]. COMPUTER SYSTEMS SUPPORT SPECIALIST DISCONTINUED, IV SITE REMAINS IN PLACE.
== END 2017-01-30 16:55 | disposition short-term general hospital (02) | DRG 871 ==
LOC: ED 12:01 → 5E 16:05 → EDHOLD 16:05 → 5E 16:55
PROVIDERS: Emergency Medicine; Family Medicine; Internal Medicine; ADMIT Internal Medicine
DX: A41.9 Sepsis, unspecified organism (principal); J18.9 Pneumonia, unspecified organism; E43 Unspecified severe protein-calorie malnutrition; G93.41 Metabolic encephalopathy; I50.32 Chronic diastolic (congestive) heart failure; M06.9 Rheumatoid arthritis, unspecified; B35.1 Tinea unguium; N39.0 Urinary tract infection, site not specified; I87.2 Venous insufficiency (chronic) (peripheral); G89.29 Other chronic pain; M81.0 Age-related osteoporosis without current pathological fracture; K21.9 Gastro-esophageal reflux disease without esophagitis; R65.20 Severe sepsis without septic shock; Z88.6 Allergy status to analgesic agent; Z79.82 Long term (current) use of aspirin; Z79.899 Other long term (current) drug therapy; Z83.3 Family history of diabetes mellitus; Z68.30 Body mass index [BMI] 30.0-30.9, adult

== ENCOUNTER 2017-02-17 10:56 | Emergency (ER) | payer OTHER ==
[~2017-02-17] VITALS: Ht 177.8 cm; Wt 74.8 kg
[~2017-02-17 10:56] MED LIST changes: +ASPIRIN CHEWABL81 MG PO; +EUCERIN CREME120 GM T; +FERROUS GLUCON324 MG PO; +HEPARIN SO5000 UNIT4 SC; +LIPITOR40 MG PO; +MIDODRINE HCL10 MG PO; +MIRALAX POWDER17 G1 PO; +MULTIVITAMINS1 EAC5 PO; +NATURE'S BLEND F1 MG PO; +OMEPRAZOLE D/R20 MG PO; +PROAIR HFA8.5 GM INH; +TYLENOL EXTRA500 M2 PO; +TYLENOL325 M1 PO; +ZINC SULFATE 1566 MG PO
[2017-02-17 12:00] LABS: HEMATOCRIT 24.4 % (42.0-52.0); HEMOGLOBIN 7.4 g/dl (14.0-18.0); MEAN CELL VOLUME 100.8 fl (80.0-94.0); MEAN CORPUSCULAR HGB 30.6 pg (27.0-31.0); MEAN CORPUSCULAR HGB CONC 30.3 g/dl (33.0-37.0); MEAN PLATELET VOLUME 8.5 fl (9.6-12.3); PLATELET COUNT AUTOMATED 111 10*3/uL (130-400); RED BLOOD COUNT 2.42 10*6/uL (4.50-5.90); RED CELL DISTRI WIDTH 20.5 % (0-14.5); WHITE BLOOD COUNT 3.4 10*3/uL (4.8-10.8)
[2017-02-17 12:15] LABS: ALKALINE PHOSPHATASE 113 U/L (45-117); BUN 56 mg/dl (7-24); CHLORIDE 102 mmol/L (98-107); POTASSIUM 4.6 mmol/L (3.5-5.1); SGOT/AST 18 IU/L (3-35); SGPT/ALT 21 U/L (12-78); SODIUM 139 mmol/L (136-145); TOTAL PROTEIN 7.1 gm/dL (6.4-8.2)
[2017-02-17 12:20] LABS: BASOPHILS 2 % (0-1); PLATELET SUFFICIENCY LOW (NORMAL); POLYCHROMASIA SLIGHT; TOTAL CELLS COUNTED 100 #CELLS
[2017-02-17 12:22] LABS: BILIRUBIN NEGATIVE (NEGATIVE); BLOOD TRACE-INTACT (NEGATIVE); CLARITY CLOUDY (CLEAR); COLOR YELLOW (YELLOW); GLUCOSE NEGATIVE (NEGATIVE); KETONE NEGATIVE (NEGATIVE); LEUKO ESTERASE 3+ (NEGATIVE); NITRITE POSITIVE (NEGATIVE); SPECIFIC GRAVITY <= 1.005 (1.005-1.030); UROBILINOGEN 0.2 E.U./dl (0.2-1.0)
[2017-02-17 12:31] LABS: BACTERIA 4+; WBC TNTC wbc/hpf (0-5)
== END 2017-02-17 16:38 | disposition short-term general hospital (02) ==
LOC: ED 10:56
PROVIDERS: Emergency Medicine
DX: D64.9 Anemia, unspecified (principal); N39.0 Urinary tract infection, site not specified; K21.9 Gastro-esophageal reflux disease without esophagitis; I50.9 Heart failure, unspecified; Z88.1 Allergy status to other antibiotic agents; Z88.6 Allergy status to analgesic agent; Z79.899 Other long term (current) drug therapy